=== PATIENT | female | born 1995 | race African-American/Black ===

== ENCOUNTER 2018-02-15 10:47 | Emergency (ER) | payer OTHER ==
[~2018-02-15] VITALS: Ht 165.1 cm; Wt 72.6 kg
[2018-02-15 11:16] LABS: URINE BILIRUBIN 1+ (Negative); URINE BLOOD 3+ (Negative); URINE CLARITY CLOUDY; URINE GLUCOSE-RANDOM* NEGATIVE (Negative); URINE KETONES NEGATIVE (Negative); URINE PROTEIN (DIPSTICK) 3+ (Negative); URINE SPECIFIC GRAVITY >= 1.030 (1.005-1.035)
[2018-02-15 11:18] LABS: URINE LEUKOCYTES-REFLEX 1+ (Negative); URINE NITRITE-REFLEX POSITIVE (Negative)
[2018-02-15 11:19] LABS: ICTOTEST (BILI CONFIRMATORY) Positive (Negative); URINE COLOR DARK YELLOW
[2018-02-15 11:28] LABS: URINE RBC >20 Many /HPF (0-2); URINE WBC-REFLEX >25 Many /HPF (0-5)
[2018-02-15 11:29] LABS: CASTS None Seen /LPF (None Seen); CRYSTALS None Seen /LPF (None Seen); SQUAMOUS 0-3 Few /LPF (0-3)
[2018-02-15] MEDS ORDERED: MACROBID 100 M100 M1 PO (11:32)
[2018-02-15] MEDS ORDERED: PHENAZOPYRIDIN200 M2 PO (11:32)
[2018-02-15 11:35] VITALS: BP 115/76
== END 2018-02-15 11:35 | disposition home or self-care (01) ==
LOC: ER 10:47
PROVIDERS: Nurse Practitioner Family
DX: N39.0 Urinary tract infection, site not specified (principal); Z91.018 Allergy to other foods; Z86.2 Personal history of diseases of the blood and blood-forming organs and certain disorders involving the immune mechanism